=== PATIENT | male | born 1960 | race Caucasian/White ===

== ENCOUNTER → 2020-06-01 10:27 | Outpatient (CLI) | payer OTHER, SELFPAY ==
[2020-06-01 13:22] LABS: COVID19 -Nasal RAPID Negative (Negative)
== END ==
PROVIDERS: PCP Family Medicine; Visit Provider Surgery
DX: Z11.59 Encounter for screening for other viral diseases (principal)
CPT/HCPCS: 87635; C9803

== ENCOUNTER 2020-06-02 06:27 | Day surgery (SDC) | payer OTHER, SELFPAY ==
[2020-05-29 12:59] VITALS: BMI 23.6
[2020-06-02 07:03] VITALS: BP 130/57; PULSE 52; RESP 16; TEMP 36.8; O2SAT 99; BMI 23.6
[2020-06-02] MEDS: LACTATED RINGERS 1,000 ML 100 ML IV (07:11)
--- NOTE | 2020-06-02 07:20 | PM.PREOP ---
Pre-operative Note COVID-19 COVID-19 status: Negative Interval Note History & Physical reviewed/Exam performed by Physician: Yes Changes to H&P: No
[2020-06-02] MEDS: CEFAZOLIN 2 GM/100 ML FROZ.PIGGY IV (07:45)
--- NOTE | 2020-06-02 08:12 | SUR.OPER ---
Supine on padded OR bed, head on pillow, arms secured on padded arm boards at <90 degrees abduction, legs uncrossed, safety belt at thigh.
[2020-06-02] MEDS: BUPIVACAINE 0.25% (PF) VIAL 30 ML INJ (08:22)
[2020-06-02 10:07] VITALS: BP 123/63; PULSE 55; RESP 13; TEMP 36.6; O2SAT 96
[2020-06-02 10:12] VITALS: BP 113/63; PULSE 58; RESP 14; TEMP 36.5; O2SAT 97
[2020-06-02 10:17] VITALS: BP 116/60; PULSE 54; RESP 16; TEMP 36.9; O2SAT 96
[2020-06-02 10:22] VITALS: BP 118/57; PULSE 57; RESP 14; TEMP 36.8; O2SAT 97
--- NOTE | 2020-06-02 10:22 | P.OP_ITS ---
Operative Date/Time/Diagnoses Date of procedure: 06/02/20 Time of procedure: 10:22 Pre-op diagnosis: Bilateral inguinal Post-op diagnosis: same Procedure & Clinicians Procedure: Open bilateral inguinal repair with mesh Same procedure as scheduled: Yes Indications: 59-year-old male with symptomatic bilateral inguinal hernia Surgeon: Francois Orosco Operative Notes Findings: Bilateral direct hernia defect, cord lipoma bilaterally Procedure in detail: The patient was placed supine on the table and bilateral lower extremity compression devices were applied. Anesthesia was induced they were intubated with an LMA and received 2g of Ancef. A time-out was performed. They were prepped and draped in sterile fashion. The right external inguinal ring and the anterior superior iliac crest were tyree ntified and marked. 1 finger breath above the inguinal ligament the skin was infiltrated with 0.25% bupivacaine. The skin incision was made here and the subcutaneous tissues were divided with electrocautery exposing the external oblique aponeurosis which was then opened along the direction of its fibers. Using blunt dissection the internal oblique aporneurosis was from the external oblique upper leaflet to identify the iliohypogastric nerve. Using a kittner the cord was carefully dissected away from the inguinal canal adjacent to the pubic tubercle. The cord including the vas deferens, testicular bloody supply, ilioguinal and genital nerve were encircled with a [place] drain. A direct floor defect was identified and it was reduced into the abdomen and the internal oblique aporneuorsis was approximated to the inguinal ligament with Ethibond suture to reapproximate the floor. The cremasteric fibers surrounding the cord were divided using electrocautery adjacent to the internal ring.. The vas deferens and the testicular vessels were preserved and protected. There was no indirect defect there was a cord lipoma which I skeltonized off the cord structures. I selected a 7x 15 cm lightweight Pro Loop hernia mesh. The inferior medial aspect of the mesh was anchored to insertion of the rectus muscle to the pubic tubercle such that there was approximately 2 cm of tubercle overlap with Ethibond and then was run continuously along the inferior edge of the mesh to the shelving edge of the inguinal ligament. Interrupted 3 0 Vicryl suture was used to anchor the superior aspect of the mesh to the conjoined tendon in several places. The tails were then reapproximated loosely around the spermatic cord. The tails of the mesh were then tucked under the external obliq ue aponeurosis. The repair was checked for hemostasis. The wound was irrigated with sterile saline. The external oblique aponeurosis was reapproximated in a running fashion using 3 0 Vicryl. The subcutaneous tissues were reapproximated with 3 0 Vicryl skin closed with 4 0 Monocryl followed by the application of Dermabond. The left external inguinal ring and the anterior superior iliac crest were identified and marked. 1 finger breath above the inguinal ligament the skin was infiltrated with 0.25% bupivacaine. The skin incision was made here and the subcutaneous tissues were divided with electrocautery exposing the external oblique aponeurosis which was then opened along the direction of its fibers. Using blunt dissection the internal oblique aporneurosis was from the external oblique upper leaflet to identify the iliohypogastric nerve. Using a kittner the cord was carefully dissected away from the inguinal canal adjacent to the pubic tubercle. The cord including the vas deferens, testicular bloody supply, ilioguinal and genital nerve were encircled with a [place] drain. A direct floor defect was identified and it was reduced into the abdomen and the internal oblique aporneuorsis was approximated to the inguinal ligament with Ethibond suture to reapproximate the floor. The cremasteric fibers surrounding the cord were divided using electrocautery adjacent to the internal ring.. The vas deferens and the testicular vessels were preserved and protected. There was no indirect defect there was a cord lipoma which I skeltonized off the cord structures. I selected a 7x 15 cm lightweight Pro Loop hernia mesh. The inferior medial aspect of the mesh was anchored to insertion of the rectus muscle to the pubic tubercle such that there was approximately 2 cm of tubercle overlap with Ethibond and then was run continuously along the inferior edge of the mesh to the shelving edge of the inguinal ligament. Interrupted 3 0 Vicryl suture was used to anchor the superior aspect of the mesh to the conjoined tendon in several places. The tails were then reapproximated loosely around the spermatic cord. The tails of the mesh were then tucked under the external oblique aponeurosis. The repair was checked for hemostasis. The wound was irrigated with sterile saline. The external oblique aponeurosis was reapproximated in a running fashion using 3 0 Vicryl. The subcutaneous tissues were reapproximated with 3 0 Vicryl skin closed with 4 0 Monocryl followed by the application of Dermabond. At the end of the operation I ensured that both testicles were within the scrotum. The sponge instrument count at the end operation was correct. The patient emerged from anesthesia was extubated and transferred to the postoperative care unit in stable condition. A total of 30 ml of of 0.25% bupivicaine was used to infiltrate the skin. Complications: none Post-operative Condition: stable Disposition: same day surgery
[2020-06-02 10:25] VITALS: BP 127/68; PULSE 54; RESP 16; TEMP 36.6; O2SAT 98
== END 2020-06-02 10:41 | disposition home or self-care (01) ==
PROVIDERS: PCP Physician Assistant Medical; Referring Provider Physician Assistant Medical; Visit Provider Surgery
PROC: (CPT 49505; principal; 2020-06-02 07:45)
DX: K40.20 Bilateral inguinal hernia, without obstruction or gangrene, not specified as recurrent (principal); D17.6 Benign lipomatous neoplasm of spermatic cord; I10 Essential (primary) hypertension; J44.9 Chronic obstructive pulmonary disease, unspecified; Z99.81 Dependence on supplemental oxygen; E03.9 Hypothyroidism, unspecified; E78.5 Hyperlipidemia, unspecified
CPT/HCPCS: 49505; C1781; J0690; J1100; J2405; J2704; J3010